=== PATIENT | male | born 1970 | race Caucasian/White ===

== ENCOUNTER 2018-04-28 03:02 | Emergency (ER) | payer OTHER ==
[2018-04-28 03:06] VITALS: BP 148/93; PULSE 95; RESP 18; TEMP 98.1; O2SAT 99
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
[2018-04-28] MEDS ORDERED: TRAM50TA PO (05:03)
[2018-04-28] MEDS ORDERED: IBUP-232 PO (05:03)
== END 2018-04-28 05:17 | disposition home or self-care (01) ==
LOC: NEPC 03:02
DX: S00.03XA Contusion of scalp, initial encounter (principal); V89.2XXA Person injured in unspecified motor-vehicle accident, traffic, initial encounter
CPT/HCPCS: 70450; 99283